=== PATIENT | female | born 1940 | race Hispanic/Latino ===

== ENCOUNTER 2017-08-24 12:10 | Emergency (ER) | payer OTHER, MEDICARE ==
[~2017-08-24 12:10] MED LIST: ACET-2743 PO; AMLO5TAB2 PO; ASPI-1012 PO; FERS325 PO; FURO20TA4 PO; HYDR-2132 PO; LOSA50TA37 PO; MECL12.585 PO; OMEP40CA37 PO
[2017-08-24] MEDS ORDERED: IBUPROFEN 600 MG TABLET ONE (13:06)
[2017-08-24 13:07] LABS: BASOPHILS % (AUTO) 1.2 % (0.0-5.0); EOSINOPHILS % (AUTO) 2.4 % (0.0-8.0); HEMATOCRIT 38.6 % (36-48); LYMPHOCYTES % (AUTO) 12.8 % (21.0-51.0); MEAN CORPUSCULAR HEMOGLOBIN 31.3 pg (27.0-33.0); MEAN CORPUSCULAR HGB CONC 34.3 g/dL (32.0-36.0); MEAN CORPUSCULAR VOLUME 91.2 fL (79-99); MONOCYTES % (AUTO) 11.7 % (3.0-13.0); NEUTROPHILS % (AUTO) 71.9 % (40.0-77.0); PLATELET COUNT (AUTO) 265 K/uL (130-400); RED BLOOD CELL COUNT(AUTO) 4.23 MIL/uL (4.00-5.50); RED CELL DISTRIBUTION WIDTH 13.7 % (11.0-15.5); WHITE BLOOD COUNT (AUTO) 6.2 K/uL (4.8-10.8)
[2017-08-24 13:15] LABS: CREATININE 0.9 mg/dL (0.5-1.5); POTASSIUM 3.4 mmol/L (3.5-5.1)
[2017-08-24 13:21] LABS: ALBUMIN 3.2 g/dL (3.5-5.0); BILIRUBIN,TOTAL 0.5 mg/dL (0.2-1.0); TOTAL PROTEIN, SERUM 7.6 g/dL (6.0-8.3)
[2017-08-24] MEDS ORDERED: LORATADINE 10 MG TABLET ONE (13:48)
== END 2017-08-24 14:56 | disposition home or self-care (01) ==
LOC: EDH 12:10
DX: J10.1 Influenza due to other identified influenza virus with other respiratory manifestations (principal); R50.81 Fever presenting with conditions classified elsewhere; I10 Essential (primary) hypertension
CPT/HCPCS: 36415; 71046; 80053; 84484; 85025; 87804; 93005

== ENCOUNTER 2017-08-30 08:54 | Observation (INO) | payer OTHER, MEDICARE ==
[~2017-08-30] VITALS: Ht 165.1 cm; Wt 93.2 kg
[2017-08-30] MEDS ORDERED: MECLIZINE HCL 25 MG TABLET ONE (09:12)
[2017-08-30] MEDS ORDERED: PROMETHAZINE HCL 25 MG/ML 1ML AMPULE IM ONE (09:12)
[2017-08-30 09:32] LABS: BASOPHILS % (AUTO) 1.3 % (0.0-5.0); LYMPHOCYTES % (AUTO) 29.8 % (21.0-51.0); MEAN CORPUSCULAR HEMOGLOBIN 30.8 pg (27.0-33.0); MEAN CORPUSCULAR HGB CONC 33.7 g/dL (32.0-36.0); MEAN CORPUSCULAR VOLUME 91.6 fL (79-99); MONOCYTES % (AUTO) 6.4 % (3.0-13.0); NEUTROPHILS % (AUTO) 61.5 % (40.0-77.0); PLATELET COUNT (AUTO) 253 K/uL (130-400); RED BLOOD CELL COUNT(AUTO) 4.26 MIL/uL (4.00-5.50); RED CELL DISTRIBUTION WIDTH 13.7 % (11.0-15.5)
[2017-08-30 09:41] LABS: CREATININE 0.9 mg/dL (0.5-1.5); POTASSIUM 3.7 mmol/L (3.5-5.1)
[2017-08-30 14:25] LABS: APPEARANCE,URINE Clear (CLEAR); BILIRUBIN,URINE Negative (NEGATIVE); COLOR,URINE Yellow (YELLOW); GLUCOSE, URINE (UA) Negative (NEGATIVE); KETONES,URINE Negative (NEGATIVE); LEUKOCYTE ESTERASE ,URINE Small (NEGATIVE); NITRATE,URINE Negative (NEGATIVE); OCCULT BLOOD,URINE Negative (NEGATIVE); PROTEIN,URINE Negative (NEGATIVE)
[2017-08-30 14:37] LABS: RBC,URINE 0-1 /HPF (0-1)
[2017-08-30 14:38] LABS: BACTERIA,URINE Rare /HPF (None Seen); SQUAMOUS EPITHELIAL CELL,UR Few /LPF (0-2)
[2017-08-30 22:00] VITALS: BP 150/70
[2017-08-30] MEDS ORDERED: ACETAMINOPHEN EXTRA STRENGTH 500 MG TABLET PO PRN (22:45)
[2017-08-30] MEDS ORDERED: MECLIZINE HCL 12.5 MG TABLET PO PRN (22:45)
[2017-08-30 23:39] VITALS: BP 153/75
[2017-08-31 03:36] VITALS: BP 153/78
[2017-08-31] MEDS ORDERED: SODIUM CHLORIDE 0.9% 1000ML 1,000 ML IV SCH (04:30)
[2017-08-31 04:46] LABS: HEMATOCRIT 36.3 % (36-48); MEAN CORPUSCULAR HEMOGLOBIN 30.2 pg (27.0-33.0); MEAN CORPUSCULAR HGB CONC 32.8 g/dL (32.0-36.0); MEAN CORPUSCULAR VOLUME 91.9 fL (79-99); PLATELET COUNT (AUTO) 266 K/uL (130-400); RED BLOOD CELL COUNT(AUTO) 3.94 MIL/uL (4.00-5.50); RED CELL DISTRIBUTION WIDTH 13.7 % (11.0-15.5); WHITE BLOOD COUNT (AUTO) 6.4 K/uL (4.8-10.8)
[2017-08-31 05:00] LABS: BASOPHILS % (MANUAL) 2 % (0-2); LYMPHOCYTES % (MANUAL) 28 % (22-44); MAN.DIFF COMMENT-IMPRESSION MANUAL DIFFERENTIAL; MONOCYTES % (MANUAL) 6 % (2-9); SEGMENTED NEUTROPHILS % 64 % (40-70)
[2017-08-31 05:01] LABS: PLATELET MORPHOLOGY COMMENT ADEQUATE
[2017-08-31 05:06] LABS: ALBUMIN 2.8 g/dL (3.5-5.0); BILIRUBIN,TOTAL 0.4 mg/dL (0.2-1.0); CREATININE 0.9 mg/dL (0.5-1.5); POTASSIUM 3.7 mmol/L (3.5-5.1); TOTAL PROTEIN, SERUM 6.6 g/dL (6.0-8.3)
[2017-08-31 08:00] VITALS: BP 143/66
[2017-08-31] MEDS: FERROUS SULFATE 325 MG TABLET.DR PO SCH (08:31)
[2017-08-31] MEDS: ASPIRIN 325 MG TABLET PO SCH (08:31)
[2017-08-31] MEDS: PANTOPRAZOLE SODIUM 40 MG TABLET.DR PO SCH (08:31)
[2017-08-31] MEDS: FUROSEMIDE 20 MG TABLET PO SCH ×2 (08:31→21:03)
[2017-08-31] MEDS: AMLODIPINE BESYLATE 5 MG TAB PO SCH (08:32)
[2017-08-31] MEDS: LOSARTAN 50 MG TABLET PO SCH (08:32)
[2017-08-31 11:00] VITALS: BP 152/71
[2017-08-31 16:00] VITALS: BP 136/43
[2017-08-31 19:00] VITALS: BP 137/75
[2017-08-31] MEDS ORDERED: AZITHROMYCIN 250 MG TABLET PO SCH (19:45)
[2017-08-31] MEDS: OSELTAMIVIR PHOSPHATE 75 MG CAP PO SCH (21:03)
[2017-08-31 23:00] VITALS: BP 140/64
[2017-09-01 04:35] VITALS: BP 142/68
[2017-09-01 08:00] VITALS: BP 144/77
[2017-09-01] MEDS: FERROUS SULFATE 325 MG TABLET.DR PO SCH (08:06)
[2017-09-01] MEDS: ASPIRIN 325 MG TABLET PO SCH (08:06)
[2017-09-01] MEDS: OSELTAMIVIR PHOSPHATE 75 MG CAP PO SCH (08:06)
[2017-09-01] MEDS: PANTOPRAZOLE SODIUM 40 MG TABLET.DR PO SCH (08:06)
[2017-09-01] MEDS: LOSARTAN 50 MG TABLET PO SCH (08:06)
[2017-09-01] MEDS: FUROSEMIDE 20 MG TABLET PO SCH (08:06)
[2017-09-01] MEDS: AMLODIPINE BESYLATE 5 MG TAB PO SCH (08:06)
[2017-09-01 11:00] VITALS: BP 137/83
[2017-09-01 16:00] VITALS: BP 156/62
== END 2017-09-01 17:40 | disposition home or self-care (01) ==
LOC: EDH 08:54 → EDHIP 15:45 → 3CH 21:30
PROVIDERS: ADMIT Internal Medicine; ATTEND Internal Medicine
DX: R42 Dizziness and giddiness (principal); J11.1 Influenza due to unidentified influenza virus with other respiratory manifestations; I10 Essential (primary) hypertension
CPT/HCPCS: 36415 ×2; 71045; 80048; 80053; 81001; 85025 ×2; 93005; 99285; G0378 ×50; J2550

== ENCOUNTER → 2018-09-19 | Outpatient (CLI) | payer OTHER, MEDICARE ==
[~2018-09-19] MED LIST changes: -AMLO5TAB2 PO; +AMLO5TAB9 PO; -HYDR-2132 PO; -LOSA50TA37 PO; +LOSA50TA64 PO
== END | disposition home or self-care (01) ==
LOC: SHCH 14:22
PROVIDERS: ATTEND Internal Medicine Cardiovascular Disease
DX: I35.8 Other nonrheumatic aortic valve disorders (principal); R06.00 Dyspnea, unspecified; I48.0 Paroxysmal atrial fibrillation
CPT/HCPCS: 93306

== ENCOUNTER → 2018-09-21 | Outpatient (CLI) | payer OTHER, MEDICARE ==
[~2018-09-21] VITALS: Ht 167.6 cm; Wt 98.4 kg
[~2018-09-21] MED LIST changes: +REGADENOSON 0.4 MG/5 ML PF SYG IVP SCH
== END | disposition home or self-care (01) ==
LOC: SHCH 08:09
PROVIDERS: ATTEND Internal Medicine Cardiovascular Disease
DX: I48.0 Paroxysmal atrial fibrillation (principal); M79.604 Pain in right leg
CPT/HCPCS: 78452; 93017; 96374; A9500 ×2; J2785

== ENCOUNTER 2018-10-22 16:17 | Emergency (ER) | payer OTHER, MEDICARE ==
[~2018-10-22 16:17] MED LIST changes: -REGADENOSON 0.4 MG/5 ML PF SYG IVP SCH
[2018-10-22 18:03] LABS: BASOPHILS % (AUTO) 0.2 % (0.0-5.0); EOSINOPHILS % (AUTO) 2.6 % (0.0-8.0); HEMATOCRIT 39.6 % (36-48); LYMPHOCYTES % (AUTO) 18.5 % (21.0-51.0); MEAN CORPUSCULAR HEMOGLOBIN 30.8 pg (27.0-33.0); MEAN CORPUSCULAR HGB CONC 32.9 g/dL (32.0-36.0); MEAN CORPUSCULAR VOLUME 93.7 fL (79-99); MONOCYTES % (AUTO) 7.5 % (3.0-13.0); NEUTROPHILS % (AUTO) 71.2 % (40.0-77.0); PLATELET COUNT (AUTO) 284 K/uL (130-400); RED BLOOD CELL COUNT(AUTO) 4.23 MIL/uL (4.00-5.50); RED CELL DISTRIBUTION WIDTH 13.9 % (11.0-15.5); WHITE BLOOD COUNT (AUTO) 8.4 K/uL (4.8-10.8)
[2018-10-22] MEDS ORDERED: MECLIZINE HCL 25 MG TABLET ONE (18:03)
[2018-10-22 18:04] LABS: BILIRUBIN,URINE Negative (NEGATIVE); COLOR,URINE Yellow (YELLOW); GLUCOSE, URINE (UA) Negative (NEGATIVE); KETONES,URINE Negative (NEGATIVE); LEUKOCYTE ESTERASE ,URINE Moderate (NEGATIVE); NITRATE,URINE Positive (NEGATIVE); OCCULT BLOOD,URINE Negative (NEGATIVE); PROTEIN,URINE Negative (NEGATIVE)
[2018-10-22 18:08] LABS: APPEARANCE,URINE SLIGHTLY CLOUDY (CLEAR)
[2018-10-22 18:18] LABS: RBC,URINE None Seen /HPF (0-1)
[2018-10-22 18:19] LABS: BACTERIA,URINE Moderate /HPF (None Seen); SQUAMOUS EPITHELIAL CELL,UR 0-2 /HPF (0-2)
[2018-10-22 18:30] LABS: ALBUMIN 3.5 g/dL (3.5-5.0); BILIRUBIN,TOTAL 0.2 mg/dL (0.2-1.0); CREATININE 0.9 mg/dL (0.5-1.5); POTASSIUM 4.2 mmol/L (3.5-5.1); TOTAL PROTEIN, SERUM 7.6 g/dL (6.0-8.3)
== END 2018-10-22 20:16 | disposition home or self-care (01) ==
LOC: EDH 16:17
DX: H81.399 Other peripheral vertigo, unspecified ear (principal); I10 Essential (primary) hypertension
CPT/HCPCS: 36415; 80053; 81001; 85025; 93005

== ENCOUNTER 2018-12-06 18:51 | Emergency (ER) | payer OTHER, MEDICARE ==
[2018-12-06] MEDS ORDERED: MECLIZINE HCL 25 MG TABLET ONE (20:27)
[2018-12-06 20:32] LABS: BASOPHILS % (AUTO) 1.2 % (0.0-5.0); EOSINOPHILS % (AUTO) 1.1 % (0.0-8.0); HEMATOCRIT 37.7 % (36-48); LYMPHOCYTES % (AUTO) 22.7 % (21.0-51.0); MEAN CORPUSCULAR HEMOGLOBIN 31.5 pg (27.0-33.0); MEAN CORPUSCULAR HGB CONC 34.1 g/dL (32.0-36.0); MEAN CORPUSCULAR VOLUME 92.5 fL (79-99); MONOCYTES % (AUTO) 8.2 % (3.0-13.0); NEUTROPHILS % (AUTO) 66.8 % (40.0-77.0); NUCLEATED RED BLOOD CELLS 0.1 % (0.0-0.19); PLATELET COUNT (AUTO) 262 K/uL (130-400); RED BLOOD CELL COUNT(AUTO) 4.07 MIL/uL (4.00-5.50); RED CELL DISTRIBUTION WIDTH 13.3 % (11.0-15.5); WHITE BLOOD COUNT (AUTO) 7.4 K/uL (4.8-10.8)
[2018-12-06] MEDS ORDERED: SODIUM CHLORIDE 0.9% 1000ML 1,000 ML IV ONE (20:32)
[2018-12-06 20:42] LABS: POTASSIUM 3.6 mmol/L (3.5-5.1)
[2018-12-06 20:44] LABS: INR 0.97 (0.85-1.15); PARTIAL THROMBOPLASTIN TIME 29.2 SEC (26.3-35.5); PROTHROMBIN TIME 10.2 SEC (9.6-11.6)
[2018-12-06 20:48] LABS: ALBUMIN 3.3 g/dL (3.5-5.0); BILIRUBIN,TOTAL 0.3 mg/dL (0.2-1.0); TOTAL PROTEIN, SERUM 7.6 g/dL (6.0-8.3)
[2018-12-06 20:50] LABS: APPEARANCE,URINE Clear (CLEAR); BILIRUBIN,URINE Negative (NEGATIVE); COLOR,URINE Yellow (YELLOW); GLUCOSE, URINE (UA) Negative (NEGATIVE); KETONES,URINE Negative (NEGATIVE); LEUKOCYTE ESTERASE ,URINE Moderate (NEGATIVE); NITRATE,URINE Negative (NEGATIVE); OCCULT BLOOD,URINE Negative (NEGATIVE); PH,URINE 6.5 (5.0-8.0); PROTEIN,URINE Negative (NEGATIVE)
[2018-12-06 20:50] LABS: B-TYPE NATRIURETIC PEPTIDE 64 pg/mL (0-100)
[2018-12-06 20:55] LABS: BACTERIA,URINE Moderate /HPF (None Seen); RBC,URINE 0-1 /HPF (0-1); SQUAMOUS EPITHELIAL CELL,UR Few /HPF (0-2)
[2018-12-06] MEDS ORDERED: CEFTRIAXONE SODIUM 1 GM ONE (21:28)
== END 2018-12-06 23:28 | disposition home or self-care (01) ==
LOC: EDH 18:51
DX: N39.0 Urinary tract infection, site not specified (principal); H81.399 Other peripheral vertigo, unspecified ear; I10 Essential (primary) hypertension; Z98.890 Other specified postprocedural states
CPT/HCPCS: 36415; 70450; 71045; 80053; 81001; 82550; 83605; 83880; 84484; 85025; 85610; 85730; 93005; 96361; 96374; 99285; J0696; J7030

== ENCOUNTER 2019-07-01 09:25 | Emergency (ER) | payer OTHER, MEDICARE ==
[~2019-07-01 09:25] MED LIST changes: +OMEP40CA13 PO; -OMEP40CA37 PO
[2019-07-01] MEDS ORDERED: KETOROLAC TROMETHAMINE 15MG/ML ONE (10:13)
[2019-07-01] MEDS ORDERED: FENTANYL CITRATE PF 50 MCG/1 ML 2ML VIAL ONE (10:14)
== END 2019-07-01 13:24 | disposition home or self-care (01) ==
LOC: EDH 09:25
DX: M25.521 Pain in right elbow (principal); D17.21 Benign lipomatous neoplasm of skin and subcutaneous tissue of right arm; I10 Essential (primary) hypertension
CPT/HCPCS: 73080; 96374; 96375; 99284; J1885; J3010

== ENCOUNTER → 2020-05-29 | Outpatient (CLI) | payer OTHER, MEDICARE ==
[~2020-05-29] VITALS: Ht 167.6 cm; Wt 89.4 kg
[~2020-05-29] MED LIST changes: +AMLO-257 PO; -AMLO5TAB9 PO; +MECL-184 PO; -MECL12.585 PO; +REGADENOSON 0.4 MG/5 ML PF SYG IVP SCH
== END | disposition home or self-care (01) ==
LOC: SHCH 07:56
PROVIDERS: ATTEND Internal Medicine Cardiovascular Disease
DX: I10 Essential (primary) hypertension (principal); R07.9 Chest pain, unspecified
CPT/HCPCS: 78452; 93017; A9500 ×2; J2785; 96374

== ENCOUNTER 2021-02-08 14:36 | Emergency (ER) | payer OTHER, MEDICARE ==
[~2021-02-08] VITALS: Ht 157.5 cm; Wt 90.7 kg
[~2021-02-08 14:36] MED LIST changes: +ISOS30TA92 PO; +LOSA100T58 PO; -LOSA50TA64 PO; -MECL-184 PO; -OMEP40CA13 PO; +OMEP40CA21 PO; +PROP150T28 PO; -REGADENOSON 0.4 MG/5 ML PF SYG IVP SCH
[2021-02-08 14:42] VITALS: BP 167/55
[2021-02-08] MEDS ORDERED: MECLIZINE HCL 25 MG TABLET PO SCH (15:15)
[2021-02-08] MEDS ORDERED: NACL 0.9% 1000ML 1,000 ML IV SCH (15:15)
[2021-02-08 15:31] LABS: BASOPHILS % (AUTO) 0.7 % (0.0-5.0); EOSINOPHILS % (AUTO) 1.8 % (0.0-8.0); HEMATOCRIT 37.1 % (36-48); LYMPHOCYTES % (AUTO) 24.2 % (21.0-51.0); MEAN CORPUSCULAR HEMOGLOBIN 31.4 pg (27.0-33.0); MEAN CORPUSCULAR HGB CONC 31.5 g/dL (32.0-36.0); MEAN CORPUSCULAR VOLUME 99.5 fL (79-99); MONOCYTES % (AUTO) 9.6 % (3.0-13.0); NEUTROPHILS % (AUTO) 63.1 % (40.0-77.0); PLATELET COUNT (AUTO) 234 K/uL (130-400); RED BLOOD CELL COUNT(AUTO) 3.73 MIL/uL (4.00-5.50); RED CELL DISTRIBUTION WIDTH 13.4 % (11.0-15.5); WHITE BLOOD COUNT (AUTO) 6.7 K/uL (4.8-10.8)
[2021-02-08 15:44] LABS: POTASSIUM 3.4 mmol/L (3.5-5.1)
[2021-02-08 15:48] LABS: BILIRUBIN,TOTAL 0.2 mg/dL (0.2-1.0); TOTAL PROTEIN, SERUM 7.1 g/dL (6.0-8.3)
[2021-02-08] MEDS ORDERED: MECL-160 PO (18:09)
== END 2021-02-08 19:13 | disposition home or self-care (01) ==
LOC: EDH 14:36
DX: R42 Dizziness and giddiness (principal); I10 Essential (primary) hypertension; I48.91 Unspecified atrial fibrillation; Z79.82 Long term (current) use of aspirin; Z79.899 Other long term (current) drug therapy; Z96.653 Presence of artificial knee joint, bilateral; Z90.710 Acquired absence of both cervix and uterus; Z90.49 Acquired absence of other specified parts of digestive tract
CPT/HCPCS: 36415; 70450; 80053; 84484; 85025; 93005; 96360; 96361 ×2; 99285; J7030

== ENCOUNTER 2021-05-14 21:29 | Inpatient (IN) | payer OTHER, MEDICARE ==
[~2021-05-14] VITALS: Ht 157.5 cm; Wt 87.3 kg
[~2021-05-14 21:29] MED LIST changes: +MECL-160 PO
[2021-05-14 21:43] VITALS: BP 147/71
[2021-05-14 22:21] LABS: BASOPHILS % (AUTO) 0.6 % (0.0-5.0); EOSINOPHILS % (AUTO) 0.9 % (0.0-8.0); HEMATOCRIT 38.7 % (36-48); LYMPHOCYTES % (AUTO) 11.2 % (21.0-51.0); MEAN CORPUSCULAR HEMOGLOBIN 30.8 pg (27.0-33.0); MEAN CORPUSCULAR HGB CONC 31.8 g/dL (32.0-36.0); MONOCYTES % (AUTO) 6.3 % (3.0-13.0); NEUTROPHILS % (AUTO) 80.5 % (40.0-77.0); PLATELET COUNT (AUTO) 224 K/uL (130-400); RED BLOOD CELL COUNT(AUTO) 3.99 MIL/uL (4.00-5.50); RED CELL DISTRIBUTION WIDTH 13.4 % (11.0-15.5)
[2021-05-14 22:26] LABS: CREATININE 1.1 mg/dL (0.5-1.5); POTASSIUM 4.1 mmol/L (3.5-5.1)
[2021-05-14] MEDS ORDERED: NITROGLYCERIN 1GM OINT 1 INCH/1GM TD ONE (22:30)
[2021-05-14] MEDS ORDERED: FUROSEMIDE 20MG VIAL IV ONE (22:30)
[2021-05-14 22:32] LABS: BILIRUBIN,TOTAL 0.3 mg/dL (0.2-1.0)
[2021-05-14 22:33] LABS: ALBUMIN 3.4 g/dL (3.5-5.0); TOTAL PROTEIN, SERUM 7.9 g/dL (6.0-8.3)
[2021-05-14 22:40] LABS: B-TYPE NATRIURETIC PEPTIDE 546 pg/mL (0-100)
[2021-05-14 22:42] LABS: ABG BASE EXCESS -3.2 mmol/L (-2.0-3.0); ABG HCO3 22.1 mmol/L (21.0-28.0); ABG OXYGEN SATURATION 99.1 % (95.0-99.0); ABG PCO2 41 mmHg (32-45)
[2021-05-14] MEDS ORDERED: IPRATROPIUM/ALBUTEROL SULFATE 3 ML SOLUTION IH ONE ×2 (22:46→23:00)
[2021-05-14 23:22] VITALS: BP 135/60
[2021-05-15] MEDS ORDERED: AMIO200T6 PO (00:40)
[2021-05-15] MEDS ORDERED: AMLO-258 PO (00:40)
[2021-05-15] MEDS ORDERED: BUSP5TAB3 PO (00:40)
[2021-05-15] MEDS ORDERED: APIX5TAB PO (00:40)
[2021-05-15] MEDS ORDERED: ISOS30TA92 PO (00:40)
[2021-05-15] MEDS ORDERED: LOSA100T58 PO (00:40)
[2021-05-15] MEDS ORDERED: FERR500P12 PO (00:40)
[2021-05-15] MEDS ORDERED: TRAZ-187 PO (00:40)
[2021-05-15] MEDS ORDERED: OMEP40CA21 PO (00:40)
[2021-05-15] MEDS ORDERED: CARV6.25 PO (00:40)
[2021-05-15] MEDS ORDERED: FURO20TA4 PO (00:40)
[2021-05-15 00:55] VITALS: BP 123/63
[2021-05-15] MEDS: PHARMACY COMMUNICATION MISC SCH ×6 (01:30→21:30)
[2021-05-15] MEDS ORDERED: ONDANSETRON 4MG TABLET PO PRN (01:30)
[2021-05-15] MEDS ORDERED: ACETAMINOPHEN 325 MG TAB PO PRN ×2 (01:30)
[2021-05-15 03:30] VITALS: BP 118/59
[2021-05-15 06:17] LABS: BASOPHILS % (AUTO) 0.5 % (0.0-5.0); EOSINOPHILS % (AUTO) 0.2 % (0.0-8.0); HEMATOCRIT 33.2 % (36-48); LYMPHOCYTES % (AUTO) 19.8 % (21.0-51.0); MEAN CORPUSCULAR HEMOGLOBIN 31.1 pg (27.0-33.0); MEAN CORPUSCULAR HGB CONC 32.2 g/dL (32.0-36.0); MEAN CORPUSCULAR VOLUME 96.5 fL (79-99); MONOCYTES % (AUTO) 7.6 % (3.0-13.0); NEUTROPHILS % (AUTO) 71.5 % (40.0-77.0); PLATELET COUNT (AUTO) 187 K/uL (130-400); RED BLOOD CELL COUNT(AUTO) 3.44 MIL/uL (4.00-5.50); RED CELL DISTRIBUTION WIDTH 13.4 % (11.0-15.5); WHITE BLOOD COUNT (AUTO) 8.3 K/uL (4.8-10.8)
[2021-05-15 06:27] LABS: CREATININE 0.9 mg/dL (0.5-1.5); POTASSIUM 3.8 mmol/L (3.5-5.1)
[2021-05-15 06:28] LABS: HEMOGLOBIN A1C 6.3 % (4.0-6.0)
[2021-05-15 06:37] LABS: MAGNESIUM 1.9 mg/dL (1.80-2.40)
[2021-05-15 08:07] VITALS: BP 133/67
[2021-05-15] MEDS ORDERED: POTASSIUM CHLORIDE 20MEQ/100ML 100 ML IV PRN (09:00)
[2021-05-15] MEDS ORDERED: POTASSIUM CHLORIDE 10% ELIXIR 20 MEQ/15 ML UDCUP PO PRN (09:00)
[2021-05-15] MEDS ORDERED: LIDOCAINE HCL-MPF 1% 2ML VIAL IV PRN (09:00)
[2021-05-15 11:31] VITALS: BP 149/66
[2021-05-15] MEDS: APIXABAN 5 MG TABLET PO SCH ×2 (11:57→21:06)
[2021-05-15] MEDS: CARVEDILOL 6.25 MG TABLET PO SCH ×2 (11:58→21:06)
[2021-05-15] MEDS: FUROSEMIDE 20MG VIAL IV SCH ×2 (11:59→17:00)
[2021-05-15 16:18] VITALS: BP 160/67
[2021-05-15] MEDS: KCL 20 MEQ ERTAB PO PRN (17:02)
[2021-05-15 20:16] VITALS: BP 156/60
[2021-05-15] MEDS: TRAZODONE HCL 100 MG TABLET PO SCH (21:06)
[2021-05-15] MEDS: AMIODARONE 200 MG TABLET PO SCH (21:06)
[2021-05-15] MEDS: BUSPIRONE HCL 5 MG TABLET PO SCH (21:06)
[2021-05-16 00:16] VITALS: BP 125/56
[2021-05-16] MEDS: FUROSEMIDE 20MG VIAL IV SCH ×2 (01:14→08:21)
[2021-05-16] MEDS: PHARMACY COMMUNICATION MISC SCH ×6 (01:30→21:30)
[2021-05-16 04:20] VITALS: BP 139/64
[2021-05-16 06:07] LABS: CREATININE 0.9 mg/dL (0.5-1.5); MAGNESIUM 1.7 mg/dL (1.80-2.40)
[2021-05-16] MEDS: KCL 20 MEQ ERTAB PO PRN ×6 (06:21→17:59)
[2021-05-16 08:03] VITALS: BP 156/70
[2021-05-16] MEDS: BUSPIRONE HCL 5 MG TABLET PO SCH ×2 (08:22→21:07)
[2021-05-16] MEDS: AMIODARONE 200 MG TABLET PO SCH ×2 (08:22→21:08)
[2021-05-16] MEDS: AMLODIPINE 5 MG TAB PO SCH (08:22)
[2021-05-16] MEDS: CARVEDILOL 6.25 MG TABLET PO SCH ×3 (08:22→21:08)
[2021-05-16] MEDS: PANTOPRAZOLE 40 MG TAB DR PO SCH (08:22)
[2021-05-16] MEDS: ISOSORBIDE MONO 30MG SR TAB PO SCH (08:22)
[2021-05-16] MEDS: APIXABAN 5 MG TABLET PO SCH ×2 (08:23→21:08)
[2021-05-16] MEDS: FERROUS SULFATE 325 MG TABLET.DR PO SCH (08:23)
[2021-05-16] MEDS: LOSARTAN 100 MG TABLET PO SCH (08:23)
[2021-05-16 11:53] VITALS: BP 125/61
[2021-05-16] MEDS: FUROSEMIDE 40 MG TABLET PO SCH (16:09)
[2021-05-16] MEDS ORDERED: LACTULOSE 20 GM/30 ML UDCUP PO PRN (16:30)
[2021-05-16 16:42] VITALS: BP 139/68
[2021-05-16 20:12] VITALS: BP 138/67
[2021-05-16] MEDS: TRAZODONE HCL 100 MG TABLET PO SCH (21:07)
[2021-05-16] MEDS: MAGNESIUM 2GM PREMIX 50ML 50 ML IV SCH (21:09)
[2021-05-17 00:16] VITALS: BP 134/64
[2021-05-17] MEDS: PHARMACY COMMUNICATION MISC SCH ×6 (01:30→21:30)
[2021-05-17 04:20] VITALS: BP 115/55
[2021-05-17 05:35] LABS: HEMATOCRIT 37.7 % (36-48); MEAN CORPUSCULAR HEMOGLOBIN 30.5 pg (27.0-33.0); MEAN CORPUSCULAR HGB CONC 31.6 g/dL (32.0-36.0); MEAN CORPUSCULAR VOLUME 96.7 fL (79-99); RED BLOOD CELL COUNT(AUTO) 3.9 MIL/uL (4.00-5.50); RED CELL DISTRIBUTION WIDTH 13.3 % (11.0-15.5); WHITE BLOOD COUNT (AUTO) 6.6 K/uL (4.8-10.8)
[2021-05-17 05:39] LABS: MAGNESIUM 2.4 mg/dL (1.80-2.40); POTASSIUM 4.2 mmol/L (3.5-5.1)
[2021-05-17 08:10] VITALS: BP 142/58
[2021-05-17] MEDS: FUROSEMIDE 40 MG TABLET PO SCH ×2 (08:26→17:07)
[2021-05-17] MEDS: AMLODIPINE 5 MG TAB PO SCH (08:26)
[2021-05-17] MEDS: FERROUS SULFATE 325 MG TABLET.DR PO SCH (08:26)
[2021-05-17] MEDS: APIXABAN 5 MG TABLET PO SCH ×2 (08:27→20:57)
[2021-05-17] MEDS: AMIODARONE 200 MG TABLET PO SCH ×2 (08:27→20:57)
[2021-05-17] MEDS: CARVEDILOL 6.25 MG TABLET PO SCH ×2 (08:27→20:56)
[2021-05-17] MEDS: ISOSORBIDE MONO 30MG SR TAB PO SCH (08:28)
[2021-05-17] MEDS: PANTOPRAZOLE 40 MG TAB DR PO SCH (08:28)
[2021-05-17] MEDS: LOSARTAN 100 MG TABLET PO SCH (08:28)
[2021-05-17] MEDS: BUSPIRONE HCL 5 MG TABLET PO SCH ×2 (08:28→20:57)
[2021-05-17 12:00] VITALS: BP 99/54
[2021-05-17 16:00] VITALS: BP 151/64
[2021-05-17 20:12] VITALS: BP 126/55
[2021-05-17] MEDS: TRAZODONE HCL 100 MG TABLET PO SCH (20:57)
[2021-05-18] VITALS (7 sets, daily range): BP systolic 101–143; BP diastolic 53–68
[2021-05-18] MEDS: PHARMACY COMMUNICATION MISC SCH ×2 (00:46→04:31)
[2021-05-18] MEDS: ISOSORBIDE MONO 30MG SR TAB PO SCH (08:32)
[2021-05-18] MEDS: AMLODIPINE 5 MG TAB PO SCH (08:32)
[2021-05-18] MEDS: LOSARTAN 100 MG TABLET PO SCH (08:33)
[2021-05-18] MEDS ORDERED: REGADENOSON 0.4 MG/5 ML PF SYG IVP SCH (09:30)
[2021-05-18] MEDS: AMIODARONE 200 MG TABLET PO SCH ×2 (13:54→20:23)
[2021-05-18] MEDS: PANTOPRAZOLE 40 MG TAB DR PO SCH (13:56)
[2021-05-18] MEDS: FERROUS SULFATE 325 MG TABLET.DR PO SCH (13:56)
[2021-05-18] MEDS: APIXABAN 5 MG TABLET PO SCH ×2 (13:58→20:23)
[2021-05-18] MEDS: CARVEDILOL 6.25 MG TABLET PO SCH ×2 (13:58→20:23)
[2021-05-18] MEDS: FUROSEMIDE 40 MG TABLET PO SCH ×2 (13:59→17:03)
[2021-05-18] MEDS: BUSPIRONE HCL 5 MG TABLET PO SCH ×2 (13:59→20:24)
[2021-05-18] MEDS: TRAZODONE HCL 100 MG TABLET PO SCH (20:24)
[2021-05-19 03:30] VITALS: BP 118/58
[2021-05-19 04:38] LABS: HEMATOCRIT 36.9 % (36-48); MEAN CORPUSCULAR HEMOGLOBIN 30.8 pg (27.0-33.0); MEAN CORPUSCULAR HGB CONC 31.7 g/dL (32.0-36.0); MEAN CORPUSCULAR VOLUME 97.1 fL (79-99); RED BLOOD CELL COUNT(AUTO) 3.8 MIL/uL (4.00-5.50); RED CELL DISTRIBUTION WIDTH 13.2 % (11.0-15.5); WHITE BLOOD COUNT (AUTO) 5.8 K/uL (4.8-10.8)
[2021-05-19 05:06] LABS: CREATININE 1.2 mg/dL (0.5-1.5); POTASSIUM 3.1 mmol/L (3.5-5.1)
[2021-05-19] MEDS: KCL 20 MEQ ERTAB PO PRN ×3 (05:09→10:34)
[2021-05-19 05:10] LABS: ALBUMIN 2.8 g/dL (3.5-5.0); BILIRUBIN,TOTAL 0.4 mg/dL (0.2-1.0); MAGNESIUM 1.8 mg/dL (1.80-2.40); TOTAL PROTEIN, SERUM 6.7 g/dL (6.0-8.3)
[2021-05-19] MEDS: MAGNESIUM 2GM PREMIX 50ML 50 ML IV SCH (05:29)
[2021-05-19 07:25] VITALS: BP 126/54
[2021-05-19] MEDS: CARVEDILOL 6.25 MG TABLET PO SCH (08:15)
[2021-05-19] MEDS: PANTOPRAZOLE 40 MG TAB DR PO SCH (08:16)
[2021-05-19] MEDS: LOSARTAN 100 MG TABLET PO SCH (08:16)
[2021-05-19] MEDS: AMLODIPINE 5 MG TAB PO SCH (08:16)
[2021-05-19] MEDS: AMIODARONE 200 MG TABLET PO SCH (08:17)
[2021-05-19] MEDS: BUSPIRONE HCL 5 MG TABLET PO SCH (08:17)
[2021-05-19] MEDS: ISOSORBIDE MONO 30MG SR TAB PO SCH (08:17)
[2021-05-19] MEDS: APIXABAN 5 MG TABLET PO SCH (08:17)
[2021-05-19] MEDS: FUROSEMIDE 40 MG TABLET PO SCH (08:18)
[2021-05-19] MEDS: FERROUS SULFATE 325 MG TABLET.DR PO SCH (08:18)
[2021-05-19] MEDS ORDERED: FUROSEMIDE 40 MG TABLET PO SCH (09:00)
[2021-05-19] MEDS ORDERED: POTASSIUM CHLORIDE 10MEQ SR TAB PO SCH (09:00)
[2021-05-19 11:20] VITALS: BP 122/56
[2021-05-19 15:05] VITALS: BP 112/47
== END 2021-05-19 15:50 | disposition home or self-care (01) | DRG 291 ==
LOC: EDH 21:29 → EDHIP 23:05 → 4DH 05-15 00:55
PROVIDERS: ADMIT Internal Medicine Infectious Disease; ATTEND Internal Medicine Infectious Disease
DX: I11.0 Hypertensive heart disease with heart failure (principal); J96.01 Acute respiratory failure with hypoxia; I44.2 Atrioventricular block, complete; D68.69 Other thrombophilia; I47.1 Supraventricular tachycardia; I48.0 Paroxysmal atrial fibrillation; I25.10 Atherosclerotic heart disease of native coronary artery without angina pectoris; E66.9 Obesity, unspecified; I50.43 Acute on chronic combined systolic (congestive) and diastolic (congestive) heart failure; K59.00 Constipation, unspecified; E03.9 Hypothyroidism, unspecified; Z20.822 Contact with and (suspected) exposure to COVID-19; R07.9 Chest pain, unspecified; E11.9 Type 2 diabetes mellitus without complications; E78.5 Hyperlipidemia, unspecified; F41.9 Anxiety disorder, unspecified; F32.9 Major depressive disorder, single episode, unspecified; R53.81 Other malaise; I35.0 Nonrheumatic aortic (valve) stenosis; Z96.653 Presence of artificial knee joint, bilateral; Z68.37 Body mass index [BMI] 37.0-37.9, adult; Z95.0 Presence of cardiac pacemaker; Z79.01 Long term (current) use of anticoagulants; Z90.49 Acquired absence of other specified parts of digestive tract
CPT/HCPCS: 36415; 36600; 71045; 78452; 80048; 80053; 82550; 82803; 83036; 83735; 83874; 83880; 84132; 84484; 85025; 85027; 87635; 93005; 93017; 93306; 93356; 94640; 96374; A9500; C9803; G0378; J1940; J2785; J3475

== ENCOUNTER 2021-07-21 07:44 | Emergency (ER) | payer OTHER, MEDICARE ==
[~2021-07-21] VITALS: Ht 157.5 cm; Wt 89.8 kg
[~2021-07-21 07:44] MED LIST changes: -ACET-2743 PO; +AMIO200T68 PO; -AMLO-257 PO; +AMLO-258 PO; +APIX5TAB PO; -ASPI-1012 PO; +BUSP5TAB3 PO; +CARV6.25 PO; +FERR500P12 PO; -FERS325 PO; -MECL-160 PO; -PROP150T28 PO; +TRAZ-187 PO
[2021-07-21] MEDS ORDERED: ACETAMINOPHEN 500 MG TABLET PO SCH (08:00)
[2021-07-21 08:10] LABS: APPEARANCE,URINE Cloudy (CLEAR); BILIRUBIN,URINE Negative (NEGATIVE); COLOR,URINE Yellow (YELLOW); GLUCOSE, URINE (UA) Negative (NEGATIVE); KETONES,URINE Negative (NEGATIVE); LEUKOCYTE ESTERASE ,URINE Large (NEGATIVE); NITRATE,URINE Negative (NEGATIVE); OCCULT BLOOD,URINE Large (NEGATIVE); PH,URINE 7.5 (5.0-8.0); PROTEIN,URINE Trace mg/dL (NEGATIVE)
[2021-07-21] MEDS ORDERED: CEPH500B PO (08:26)
[2021-07-21] MEDS ORDERED: ACET-2743 PO (08:26)
[2021-07-21 08:28] LABS: BACTERIA,URINE Many /HPF (None Seen); SQUAMOUS EPITHELIAL CELL,UR Rare /HPF (0-2); WBC,URINE 26-50 /HPF (0-1)
[2021-07-21] MEDS ORDERED: CEFTRIAXONE 1G VIAL IM SCH (08:30)
[2021-07-21 08:40] VITALS: BP 130/78
== END 2021-07-21 08:41 | disposition home or self-care (01) ==
LOC: EDH 07:44
DX: N39.0 Urinary tract infection, site not specified (principal); M25.552 Pain in left hip; I10 Essential (primary) hypertension; Z79.01 Long term (current) use of anticoagulants; Z79.899 Other long term (current) drug therapy; Z90.49 Acquired absence of other specified parts of digestive tract; Z95.0 Presence of cardiac pacemaker; W01.0XXA Fall on same level from slipping, tripping and stumbling without subsequent striking against object, initial encounter; Y93.89 Activity, other specified; Y92.89 Other specified places as the place of occurrence of the external cause; Y99.8 Other external cause status
CPT/HCPCS: 81001; 87077; 87088; 87186; 96372; 99283; J0696

== ENCOUNTER 2021-10-27 18:35 | Emergency (ER) | payer OTHER, MEDICARE ==
[~2021-10-27 18:35] MED LIST changes: +ACET-2743 PO; +CEPH500B PO
[2021-10-27 19:33] LABS: BASOPHILS % (AUTO) 0.4 % (0.0-5.0); EOSINOPHILS % (AUTO) 0.1 % (0.0-8.0); HEMATOCRIT 37.9 % (36-48); LYMPHOCYTES % (AUTO) 13.5 % (21.0-51.0); MEAN CORPUSCULAR HGB CONC 31.9 g/dL (32.0-36.0); MEAN CORPUSCULAR VOLUME 97.2 fL (79-99); MONOCYTES % (AUTO) 7.5 % (3.0-13.0); NEUTROPHILS % (AUTO) 77.9 % (40.0-77.0); PLATELET COUNT (AUTO) 196 K/uL (130-400); RED CELL DISTRIBUTION WIDTH 13.3 % (11.0-15.5); WHITE BLOOD COUNT (AUTO) 9.6 K/uL (4.8-10.8)
[2021-10-27 19:42] LABS: CREATININE 1.2 mg/dL (0.5-1.5); POTASSIUM 3.5 mmol/L (3.5-5.1)
[2021-10-27 19:52] LABS: ALBUMIN 3.1 g/dL (3.5-5.0); BILIRUBIN,TOTAL 0.3 mg/dL (0.2-1.0); TOTAL PROTEIN, SERUM 7.5 g/dL (6.0-8.3)
[2021-10-27] MEDS ORDERED: 0.9%NACL 1000ML 1,000 ML IV ONE (20:30)
[2021-10-27 20:39] LABS: APPEARANCE,URINE CLOUDY (CLEAR); BILIRUBIN,URINE NEGATIVE (NEGATIVE); COLOR,URINE YELLOW (YELLOW); GLUCOSE, URINE (UA) NEGATIVE (NEGATIVE); KETONES,URINE NEGATIVE (NEGATIVE); LEUKOCYTE ESTERASE ,URINE LARGE (NEGATIVE); NITRATE,URINE POSITIVE (NEGATIVE); OCCULT BLOOD,URINE LARGE (NEGATIVE); PH,URINE 6.5 (5.0-8.0); PROTEIN,URINE TRACE mg/dL (NEGATIVE)
[2021-10-27 20:50] LABS: RBC,URINE 26-50 /HPF (0-1)
[2021-10-27 20:51] LABS: BACTERIA,URINE Moderate /HPF (None Seen); SQUAMOUS EPITHELIAL CELL,UR Few /HPF (0-2); TRANSITIONAL EPI CELLS,URINE Few /HPF (None Seen)
[2021-10-27] MEDS ORDERED: CEFTRIAXONE 1G VIAL IVP ONE (21:30)
[2021-10-27] MEDS ORDERED: MACR100 PO (22:06)
[2021-10-27 22:07] VITALS: BP 143/64
[2021-11-01] MEDS ORDERED: FURO20TA4 PO (00:52)
[2021-11-01] MEDS ORDERED: POTA-183 PO (00:52)
[2021-11-01] MEDS ORDERED: TRAZ-187 PO (00:52)
== END 2021-10-27 22:25 | disposition home or self-care (01) ==
LOC: EDH 18:35
DX: N39.0 Urinary tract infection, site not specified (principal); R42 Dizziness and giddiness; Z20.822 Contact with and (suspected) exposure to COVID-19; E03.9 Hypothyroidism, unspecified; E78.00 Pure hypercholesterolemia, unspecified; I25.10 Atherosclerotic heart disease of native coronary artery without angina pectoris; I50.9 Heart failure, unspecified; Z79.01 Long term (current) use of anticoagulants; Z79.899 Other long term (current) drug therapy; Z95.0 Presence of cardiac pacemaker
CPT/HCPCS: 36415; 80053; 81001; 84484; 85025; 87077; 87088; 87186; 87635; 93005; 96361; 96374; 99285; C9803; J0696; J7030

== ENCOUNTER 2021-10-29 07:48 | Emergency (ER) | payer OTHER, MEDICARE ==
[~2021-10-29] VITALS: Ht 157.5 cm; Wt 88.5 kg
[~2021-10-29 07:48] MED LIST changes: +MACR100 PO
[2021-10-29 08:12] LABS: BASOPHILS % (AUTO) 0.7 % (0.0-5.0); EOSINOPHILS % (AUTO) 0.1 % (0.0-8.0); HEMATOCRIT 36.2 % (36-48); LYMPHOCYTES % (AUTO) 14.9 % (21.0-51.0); MEAN CORPUSCULAR HEMOGLOBIN 30.5 pg (27.0-33.0); MEAN CORPUSCULAR HGB CONC 31.2 g/dL (32.0-36.0); MEAN CORPUSCULAR VOLUME 97.6 fL (79-99); MONOCYTES % (AUTO) 10.1 % (3.0-13.0); NEUTROPHILS % (AUTO) 73.8 % (40.0-77.0); PLATELET COUNT (AUTO) 176 K/uL (130-400); RED BLOOD CELL COUNT(AUTO) 3.71 MIL/uL (4.00-5.50); RED CELL DISTRIBUTION WIDTH 13.5 % (11.0-15.5)
[2021-10-29 08:30] LABS: CREATININE 1.2 mg/dL (0.5-1.5); POTASSIUM 3.4 mmol/L (3.5-5.1)
[2021-10-29 08:39] LABS: ALBUMIN 2.9 g/dL (3.5-5.0); BILIRUBIN,TOTAL 0.5 mg/dL (0.2-1.0); TOTAL PROTEIN, SERUM 7.3 g/dL (6.0-8.3)
[2021-10-29] MEDS ORDERED: 0.9% NACL 500ML IV.SOLN 500 ML IV ONE ×2 (08:47→09:30)
[2021-10-29 09:31] LABS: MAGNESIUM 1.9 mg/dL (1.80-2.40); THYROID STIMULATING HORMONE 1.33 uIU/mL (0.36-3.74)
[2021-10-29 10:32] LABS: APPEARANCE,URINE CLEAR (CLEAR); BILIRUBIN,URINE NEGATIVE (NEGATIVE); COLOR,URINE YELLOW (YELLOW); GLUCOSE, URINE (UA) NEGATIVE (NEGATIVE); KETONES,URINE NEGATIVE (NEGATIVE); LEUKOCYTE ESTERASE ,URINE MODERATE (NEGATIVE); NITRATE,URINE NEGATIVE (NEGATIVE); OCCULT BLOOD,URINE MODERATE (NEGATIVE); PROTEIN,URINE NEGATIVE (NEGATIVE); UROBILINOGEN,URINE 0.2 mg/dL (0.2-1.0)
[2021-10-29 11:35] LABS: BACTERIA,URINE Rare /HPF (None Seen); SQUAMOUS EPITHELIAL CELL,UR Rare /HPF (0-2); WBC,URINE 51-100 /HPF (0-1)
[2021-10-29] MEDS ORDERED: CEFTRIAXONE 1G VIAL IVP ONE (12:30)
[2021-10-29 12:43] VITALS: BP 116/46
[2021-11-01] MEDS ORDERED: POTA-183 PO (00:52)
[2021-11-01] MEDS ORDERED: FURO20TA4 PO (00:52)
[2021-11-01] MEDS ORDERED: TRAZ-187 PO (00:52)
== END 2021-10-29 13:07 | disposition home or self-care (01) ==
LOC: EDH 07:48
DX: R42 Dizziness and giddiness (principal); I95.2 Hypotension due to drugs; N30.90 Cystitis, unspecified without hematuria; E78.00 Pure hypercholesterolemia, unspecified; I11.0 Hypertensive heart disease with heart failure; I25.10 Atherosclerotic heart disease of native coronary artery without angina pectoris; I50.9 Heart failure, unspecified; Z79.01 Long term (current) use of anticoagulants; Z79.899 Other long term (current) drug therapy; Z90.49 Acquired absence of other specified parts of digestive tract; Z95.0 Presence of cardiac pacemaker
CPT/HCPCS: 36415; 70450; 71045; 73560; 80053; 81001; 83605; 83735; 83880; 84443; 84484; 85025; 93005; 96374; 99285; J0696; J7040; 96361

== ENCOUNTER → 2022-01-25 | Outpatient (CLI) | payer OTHER, MEDICARE ==
[~2022-01-25] MED LIST changes: -ACET-2743 PO; -AMLO-258 PO; -CEPH500B PO; -ISOS30TA92 PO; +POTA-183 PO
[2022-01-25 12:27] LABS: CREATININE 1.1 mg/dL (0.5-1.5); POTASSIUM 3.2 mmol/L (3.5-5.1)
== END | disposition home or self-care (01) ==
LOC: LAB 11:04
PROVIDERS: ATTEND Internal Medicine Cardiovascular Disease
DX: I48.0 Paroxysmal atrial fibrillation (principal); I10 Essential (primary) hypertension
CPT/HCPCS: 36415; 80048

== ENCOUNTER 2022-04-05 15:34 | Emergency (ER) | payer OTHER, MEDICARE ==
[2022-04-05 16:06] LABS: BASOPHILS % (AUTO) 0.3 % (0.0-5.0); EOSINOPHILS % (AUTO) 1.1 % (0.0-8.0); LYMPHOCYTES % (AUTO) 15.7 % (21.0-51.0); MEAN CORPUSCULAR HEMOGLOBIN 32.7 pg (27.0-33.0); MEAN CORPUSCULAR VOLUME 99.2 fL (79-99); MONOCYTES % (AUTO) 8.8 % (3.0-13.0); NEUTROPHILS % (AUTO) 73.6 % (40.0-77.0); PLATELET COUNT (AUTO) 182 K/uL (130-400); RED BLOOD CELL COUNT(AUTO) 3.73 MIL/uL (4.00-5.50); WHITE BLOOD COUNT (AUTO) 6.4 K/uL (4.8-10.8)
[2022-04-05 16:13] LABS: CREATININE 1.3 mg/dL (0.5-1.5); POTASSIUM 3.4 mmol/L (3.5-5.1)
[2022-04-05 16:20] LABS: APPEARANCE,URINE SL CLOUDY (CLEAR); BILIRUBIN,URINE NEGATIVE (NEGATIVE); COLOR,URINE YELLOW (YELLOW); GLUCOSE, URINE (UA) NEGATIVE (NEGATIVE); KETONES,URINE 5 mg/dL (NEGATIVE); LEUKOCYTE ESTERASE ,URINE MODERATE (NEGATIVE); NITRATE,URINE POSITIVE (NEGATIVE); OCCULT BLOOD,URINE MODERATE (NEGATIVE); PROTEIN,URINE NEGATIVE (NEGATIVE); UROBILINOGEN,URINE 0.2 mg/dL (0.2-1.0)
[2022-04-05 16:21] LABS: ALBUMIN 2.8 g/dL (3.5-5.0)
[2022-04-05 17:05] LABS: BACTERIA,URINE Moderate /HPF (None Seen); SQUAMOUS EPITHELIAL CELL,UR Few /HPF (0-2)
[2022-04-05] MEDS ORDERED: CEFTRIAXONE 1G VIAL IVP STA (17:20)
[2022-04-05] MEDS ORDERED: 0.9%NACL 1000ML 1,000 ML IV ONE (17:30)
[2022-04-05] MEDS ORDERED: MECLIZINE HCL 25 MG TABLET ONE (18:36)
[2022-04-05] MEDS ORDERED: CEPH500B PO (18:46)
[2022-04-05] MEDS ORDERED: MECL-226 PO (18:47)
[2022-04-05] MEDS ORDERED: MECLIZINE HCL 25 MG TABLET PO ONE (19:00)
[2022-04-05 19:11] VITALS: BP 160/71
== END 2022-04-05 19:12 | disposition home or self-care (01) ==
LOC: EDH 15:34
DX: N39.0 Urinary tract infection, site not specified (principal); E86.0 Dehydration; M25.551 Pain in right hip; M25.552 Pain in left hip; I10 Essential (primary) hypertension; I48.91 Unspecified atrial fibrillation; Z79.01 Long term (current) use of anticoagulants; Z79.899 Other long term (current) drug therapy; Z95.810 Presence of automatic (implantable) cardiac defibrillator; W18.39XA Other fall on same level, initial encounter; Y93.89 Activity, other specified; Y92.89 Other specified places as the place of occurrence of the external cause; Y99.8 Other external cause status
CPT/HCPCS: 99285; 96374; 70450; 96361; 80053; 84484; 85025; 87077 ×2; 87088; 87186 ×2; 81001; 36415; 73522; 72100; 93005; J7030; J0696

== ENCOUNTER → 2022-07-02 | Outpatient (CLI) | payer OTHER, MEDICARE ==
[~2022-07-02] MED LIST changes: +ACET325T51 PO; -APIX5TAB PO; +ASPI-1005 PO; -BUSP5TAB3 PO; +FAMO20TA8 PO; -FERR500P12 PO; -FURO20TA4 PO; +HYDR-4153 PO; -MACR100 PO; -OMEP40CA21 PO; -POTA-183 PO; +TRAM50TA4 PO; -TRAZ-187 PO
[2022-07-02 12:31] LABS: CREATININE 1.2 mg/dL (0.5-1.5); POTASSIUM 4.2 mmol/L (3.5-5.1)
== END | disposition home or self-care (01) ==
LOC: LAB 08:52
PROVIDERS: ATTEND Internal Medicine Cardiovascular Disease
DX: I48.0 Paroxysmal atrial fibrillation (principal)
CPT/HCPCS: 36415; 80048; 83880